=== PATIENT | female | born 1980 | race Caucasian/White ===

== ENCOUNTER 2025-04-20 23:23 | Emergency (ER) | payer MEDICAID, OTHER ==
[~2025-04-20] VITALS: Ht 160 cm; Wt 86.0 kg
[2025-04-20 23:31] VITALS: TEMP 36.7; O2SAT 99
[2025-04-21 01:07] LABS: CLARITY URINE CLEAR (CLEAR); COLOR URINE DARK YELLOW (YELLOW); GLUCOSE URINE NEGATIVE (NEGATIVE); KETONES URINE TRACE (NEGATIVE); LEUKOCYTE ESTERASE URINE NEGATIVE (NEGATIVE); NITRITE URINE NEGATIVE (NEGATIVE); OCCULT BLOOD URINE NEGATIVE (NEGATIVE); PH URINE 6.0 (4.5-8.0); PROTEIN URINE TRACE (NEGATIVE); SPECIFIC GRAVITY URINE 1.026 (1.005-1.030); UROBILINOGEN URINE 1.0 E.U./dL (0.2-1.0)
[2025-04-21 01:20] LABS: BASOPHILS % 0.6 % (0.0-2.0); EOSINOPHILS % 1.1 % (0.0-5.0); HEMATOCRIT. 36.5 % (36.0-48.0); HEMOGLOBIN. 12.5 g/dL (12.0-16.0); LYMPHOCYTES % 17.0 % (20.0-50.0); MEAN PLATELET VOLUME 8.8 fl (7.4-10.4); MONOCYTES % 5.3 % (2.0-8.0); NEUTROPHILS % 76.0 % (40.0-76.0); PLATELET 273 x1000/uL (130-400); RED BLOOD CELL COUNT 4.18 mill/uL (4.2-5.4); RED CELL DISTRIBUTION WIDTH 12.9 % (11.6-14.6)
[2025-04-21 01:36] LABS: CREATININE 0.9 mg/dL (0.6-1.0); UREA NITROGEN BLOOD 15 mg/dL (9-23)
[2025-04-21] MEDS ORDERED: DICYCLOMINE HCL 10MG CAPSULE PO ONE (02:15)
[2025-04-21] MEDS ORDERED: FAMOTIDINE 20MG TABLET PO ONE (02:15)
[2025-04-21] MEDS ORDERED: MAGNESIUM/ALUMINUM HYDROXIDE/SIMETHICONE 30ML UDC PO ONE (02:15)
[2025-04-21] MEDS: ONDANSETRON HCL 4MG TABLET PO ONE (02:52)
[2025-04-21 02:53] LABS: HCG SCREEN NEGATIVE
[2025-04-21] MEDS: KETOROLAC 15MG/ML VIAL IM ONE (02:54)
[2025-04-21 02:59] VITALS: BP 125/69; PULSE 69; RESP 18; O2SAT 97
[2025-04-21] MEDS ORDERED: MAG-55 MT (03:24)
[2025-04-21 04:09] LABS: SQUAMOUS EPITHELIAL CELL URINE FEW /lpf (RARE/1+)
[2025-04-21 04:10] LABS: RBC URINE 0-2 /hpf (0-2); WBC URINE 0-2 /hpf (0-2)
[2025-04-21 04:11] LABS: BACTERIA URINE NONE SEEN
== END 2025-04-21 03:48 | disposition home or self-care (01) ==
LOC: ER 23:36
DX: K29.70 Gastritis, unspecified, without bleeding (principal); K50.90 Crohn's disease, unspecified, without complications
CPT/HCPCS: 99283; 80048; 81003; 81025; 84703; 85025; 36415; 96372; J1885; Q0162